=== PATIENT | female | born 1955 | race Caucasian/White ===

== ENCOUNTER → 2020-08-12 | Outpatient (CLI) | payer MEDICARE, SELFPAY ==
[2020-08-12 13:53] VITALS: BMI 22.1
[2020-08-15 03:06] LABS: Chlamydia By Nucleic Acid AMP Negative (Negative)
[2020-08-15 08:41] LABS: Gonococcus By Nucleic Acid AMP Negative (Negative)
[2020-08-16 04:37] LABS: HSV Culture Without Typing Positive (.)
== END | disposition home or self-care (01) ==
PROVIDERS: Referring Provider Nurse Practitioner Women's Health; Visit Provider Nurse Practitioner Women's Health
DX: Z12.4 Encounter for screening for malignant neoplasm of cervix (principal); Z11.3 Encounter for screening for infections with a predominantly sexual mode of transmission
CPT/HCPCS: 87255; 87491; 87591; 87624; 88175; G0145

== ENCOUNTER → 2020-12-03 15:52 | Outpatient (CLI) | payer MEDICARE, SELFPAY ==
[2020-09-02 15:40] VITALS: BMI 21.9
--- NOTE | 2020-12-03 15:58 | BD_ITS ---
STUDY: DUAL ENERGY X-RAY ABSORPTIOMETRY / DXA REASON FOR EXAM: Female, 65 years old. [id number] TECHNIQUE: Bone Mineral Density (BMD) measurements of lumbar spine and bilateral hips were obtained. COMPARISON: None. FINDINGS: Lumbar Spine (L1-L4): g/cm2 (1.216) / T-score (0.1) / Z-score (1.7) Findings are suggestive of normal bone density with a low fracture risk. Left Femur Total: g/cm2 (0.855) / T-score (-1.2) / Z-score (0.1) Left Femoral Neck: g/cm2 (0.772) / T-score (-1.9) / Z-score (-0.4) Right Femur Total: g/cm2 (0.932) / T-score (-0.6) / Z-score (0.7) Right Femoral Neck: g/cm2 (0.855) / T-score (-1.3) / Z-score (0.2) BD/Dexa Bone Density Study IMPRESSION: The patient is considered osteopenic as outlined below according to World Luis Organization (WHO) criteria with a moderate fracture risk. Reference Information: The T-score is the number of standard deviations above or below the standard which is normal for young adults at their peak bone mineral density. The World Health Organization (WHO) interprets the T-scores as follows: Above -1 Normal bone density Between -1 and -2.5 Osteopenia Equal to / or below -2.5 Osteoporosis As a practical clinical guideline, osteopenia may be graded as follows: Mild -1 through -1.5 Moderate -1.6 through -2.0 Severe -2.1 through -2.4 The Z-score is the number of standard deviations above or below age-matched controls. A Z-score of less than -1.5 would be considered abnormal. References: 1. NIH Osteoporosis and Related Bone Diseases www osteo.org 2. International Society for Clinical Densitometry www iscd.org 3. National Osteoporosis Foundation www nof.org Electronically Signed: Sander Arenas MD at 12:29 EDT , Service support ,
== END ==
DX: Z78.0 Asymptomatic menopausal state (principal); M85.80 Other specified disorders of bone density and structure, unspecified site
CPT/HCPCS: 77080

== ENCOUNTER → 2020-12-11 10:40 | Outpatient (CLI) | payer MEDICARE, SELFPAY ==
[2020-09-02 15:40] VITALS: BMI 21.9
[2020-12-11 11:17] LABS: Absolute Lymphocyte Count 1.23 X10^3/uL (0.83-4.51); Basophil# 0.03 X10^3/uL; Basophil% 0.5 % (0-1); Eosinophil# 0.14 X10^3/uL; Eosinophils% 2.4 % (0-5); Hemoglobin 15.2 g/dL (12.0-15.0); Lymphocyte # 1.23 X10^3/ul (0.83-4.51); Mean Corp Hgb Conc 32.3 g/dL (32-36); Mean Corpuscular Hgb 30.6 pg (27.0-32.0); Mean Corpuscular Volume 94.8 fL (81-99); Mean Platelet Vol. 10.9 fl (6.2-12.0); Monocyte# 0.46 X10^3/uL; Monocyte% 7.8 % (0-10); NRBC Flagged by Analyzer 0 % (0-5); Neutrophil % 68.1 % (47-70); Platelet Count 173 K/mm3 (150-450); RBC Distribution Width CV 12.7 % (11.6-14.6); RBC Distribution Width SD 44.2 fl (35.1-43.9); Red Blood Count 4.96 M/mm3 (4.2-5.4); White Blood Count 5.9 K/mm3 (4.4-11.0)
[2020-12-11 11:57] LABS: ALB/GLOB Ratio 1.1 RATIO (0.9-2.4); AST(SGOT) 20 U/L (15-37); Alanine Aminotransfer ALT/SGPT 30 U/L (13-56); Alkaline Phosphatase 70 U/L (45-117); Anion Gap 3 (5-15); BUN 18 mg/dL (7-18); BUN/Creat Ratio 21.1 RATIO (10-20); Chloride 105 mmol/L (98-107); Cholesterol 207 mg/dL (200); Creatinine, Serum 0.85 mg/dL (0.55-1.02); EST Glomerular Filtration Rate 71 mL/min (>60); Est Glom Filt Rate - Afr Amer 85 mL/min (>60); Globulin 3.7 g/dL (2.2-4.2); Glucose 82 mg/dL (74-106); High Density Lipoprotein 70 mg/dL; Potassium 3.8 mmol/L (3.5-5.1); Protein, Total 7.7 g/dL (6.4-8.2); Sodium Level 140 mmol/L (136-145); Thyroid Stim Hormone (TSH) 1.77 uIU/mL (0.358-3.74); Triglycerides 114 mg/dL; Very Low Density Lipoprotein 23 mg/dL (5-40)
[2020-12-12 08:09] LABS: Hepatitis C Ab <0.1 s/co ratio (0.0-0.9)
== END ==
LOC: LAB.FUTURE 12-03 16:30 → LAB 10:41
DX: E78.2 Mixed hyperlipidemia (principal); Z78.0 Asymptomatic menopausal state; Z11.59 Encounter for screening for other viral diseases
CPT/HCPCS: 36415; 80053; 80061; 84443; 85025; 86803; 86804

== ENCOUNTER 2021-02-26 12:27 | Emergency (ER) | payer MEDICARE, SELFPAY ==
[2021-02-02 14:57] VITALS: BMI 21.9
[2021-02-26] VITALS (8 sets, daily range): BP systolic 113–143; BP diastolic 70–87; PULSE 85–96; RESP 13–23; TEMP 36.1–36.2; O2SAT 96–100; BMI 21.8
--- NOTE | 2021-02-26 12:58 | RAD_ITS ---
STUDY: X-RAY CHEST REASON FOR EXAM: Female, 65 years old. Fever TECHNIQUE: Single AP portable view of the chest. COMPARISON: None. FINDINGS: EKG electrodes are seen. The lungs are clear and expanded. There is no demonstrated pleural abnormality. Normal size heart. Normal mediastinum and negro. Normal visualized pulmonary arteries. There is atherosclerotic tortuosity of the aortic arch and descending thoracic aorta. There are degenerative changes of the visualized thoracic spine. Normal visualized ribs, clavicles, and shoulders. There is no demonstrated abnormality of the visualized soft tissue structures of the upper abdomen. RAD/Chest 1 View (Portable) IMPRESSION: No acute abnormality is seen. Electronically Signed: Sander Arenas MD at 14:25 EDT , Service support ,
--- NOTE | 2021-02-26 12:58 | EKG12_ITS ---
Test Reason : SOB Blood Pressure : / mmHG Vent. Rate : 076 BPM Atrial Rate : 076 BPM P-R Int : 144 ms QRS Dur : 066 ms QT Int : 370 ms P-R-T Axes : 052 010 028 degrees QTc Int : 416 ms Normal sinus rhythm Normal ECG Confirmed by MARCUS MENDEZ, ROS ([id number]), editor newspaper LAUREL SIMS ([id number]) on 03/03/2021 1:33:02 PM Referred By: SHAHEEN/TRAMAINE Confirmed By:ROS VELAZQUEZ MD
--- NOTE | 2021-02-26 12:59 | EDS_ITS ---
HPI History of Present Illness Chief Complaint: Shortness of Breath Informant: patient Onset/Context/Timing Onset: Weeks Timing: Intermittent Current Severity: Mild Maximum Severity: Mild Narrative Narrative: 65-year-old female no significant past medical history only surgery was a tonsillectomy. States she was in [place] a week ago. For the last week she has had intermittent fever of 100-1 01. Mild cough. Mild shortness of breath. No chest pain. No vomiting or diarrhea. Mild nausea. No dysuria. No abdominal pain. States she is usually not ill. Saw her primary care physician last week said she had some abnormal labs. Prior similar symptoms: No Recent Illness/Hospitalization: No PFSH PFSH Home Medications ascorbate calcium (vitamin C) 500 mg tablet 500 mg PO DAILY 08/12/20 [History Last Taken Unknown] calcium carbonate 500 mg calcium (1,250 mg) tablet 500 mg PO DAILY 08/12/20 [History Last Taken Unknown] cholecalciferol (vitamin D3) 50 mcg (2,000 unit) capsule 50 mcg PO DAILY 1 10/13/19 [History Last Taken Unknown] cod liver oil 1 cap PO DAILY 08/12/20 [History Last Taken Unknown] multivitamin 1 tab PO DAILY 08/12/20 [History Last Taken Unknown] estradiol See Rx Instructions VAGINAL .COMPLEX #42.5 g 09/02/20 [Rx Last Taken Unknown] Allergy/AdvReac Type Severity Reaction Status Date / Time No Known Allergies Allergy Unverified 02/02/21 14:52 Family History Aunt Breast cancer Surgical History History of tonsillectomy Social History household members: spouse number of children: 9 current occupational status: retired history of recent travel: No Smoking Status: Never smoker alcohol intake: never substance use type: does not use what type of physical activity do you participate in: walking seatbelt use: always do you feel safe at home: Yes additional social history: - [place] ROS ROS ED ROS Narrative Cough and fever. Review of Systems ROS Unobtainable: Denies due to encephalopathy Constitutional Constitutional ED: Reports fever(s) Eyes Eyes: Denies change in vision ENT ENT ED: Denies ear pain or sore throat Cardiovascular Cardiovascular: Denies chest pain or palpitations Respiratory/Chest Respiratory/Chest: Reports cough Gastrointestinal Gastrointestinal: Denies abdominal pain, diarrhea, nausea or vomiting Genitourinary Genitourinary ED: Denies dysuria or hematuria Musculoskeletal Musculoskeletal: Denies myalgias Integumentary Denies abscess or rash Neurologic Neurologic: Denies headache(s) Psychiatric Psychiatric: Denies depression Endocrine Endocrinology: Denies polyuria Allergic/Immunologic Allergic/Immunologic ED: Denies urticaria EXAM Physical Exam Narrative Exam Narrative: Older female no acute distress vital signs stable afebrile. Pulse ox 98% on room air no signs hypoxia. HEENT exam unremarkable. Mostly findings. Lungs clear to auscultation bilaterally. Heart regular rhythm no murmur rate about 90. Abdomen soft nontender normal bowel sounds no peritoneal signs. Patient moving all 4 extremities. No edema. Back nontender. Neurologically she is awake alert with no focal motor deficits. Const Vital Signs: 02/26/21 12:28 02/26/21 12:45 02/26/21 13:30 Temperature 97.2 F L Temperature Source Temporal Pulse Rate 90 89 Respiratory Rate 16 13 Respiratory Effort Short of Breath Blood Pressure 113/82 H Blood Pressure Mean 92 Pulse Ox 98 Oxygen Delivery Method Room Air Venturi Mask Room Air 02/26/21 13:32 02/26/21 14:38 02/26/21 14:39 Temperature 97 F L 96.9 F L Temperature Source Temporal Temporal Pulse Rate 89 Respiratory Rate 16 Respiratory Effort Blood Pressure 127/70 H Blood Pressure Mean 89 Pulse Ox 100 Oxygen Delivery Method 02/26/21 16:18 02/26/21 17:15 Temperature Temperature Source Pulse Rate 85 Respiratory Rate 21 H Respiratory Effort Blood Pressure 126/85 H 143/87 H Blood Pressure Mean 98 105 Pulse Ox 96 Oxygen Delivery Method Room Air Positive well nourished and well developed General Appearance ED: well developed HEENT Reports moist mucous membranes Negative for trauma or tenderness Eyes PERRL and EOMs intact bilaterally Neck no lymphadenopathy, supple and no JVD General: Negative for tenderness Chest Wall inspection of chest normal and palpation of chest normal Resp normal respiratory effort and clear to auscultation bilaterally Effort and Inspection: Negative for pain with movement GI normal to inspection, nondistended, normoactive bowel sounds, non-tender and non-distended Palpation: soft Back/Spine no CVA tenderness General Back: Negative for CVA tenderness Cervical Spine: Negative for cervical spine tenderness Extremity normal to inspection General Extremety ED: Negative for edema or tenderness General Extremity: Negative for edema Neuro oriented x3, CN's II-XII intact bilaterally and no sensory deficits noted Sensorium / Orientation: alert; Negative for orientation impaired, lethargic or stuporous Motor Exam: strength 5/5 throughout; Negative for general weakness Psych mental status grossly normal Skin no rashes or lesions noted and no wounds MDM MDM MDM Narrative Medical decision making narrative: Older female recent fevers with generalized weakness and cough. Will undergo a septic work-up. Treated with IV fluids. Repeat exam patient is doing well at 5:35 PM. Exam unchanged. Clinically looks well. Vital signs are stable. I went over all test results the patient and her . Difficulty with her being discharged home with outpatient follow-up with her primary care physician next week. I explained to me none of any specific cause for her low-grade temperatures or her symptoms of fatigue. Lab Data Attestation: I reviewed the patient's lab results. Lab results narrative: CBC shows a white count 8. Hemoglobin 13.7. 35% neutrophils 2% bands. PT/INR unremarkable. Electrolytes unremarkable gap of 4 creatinine 0.91 mildly elevated ALT and alk phos. UA normal. Chest x-ray portable 1 view unremarkable. Lactic acid normal. Liver enzymes are still slightly elevated but improved from the most recent set done by the [facility]. Labs: Laboratory Results - last 24 hr 02/26/21 02/26/21 02/26/21 13:21 13:30 13:30 WBC 8.6 RBC 4.61 Hgb 13.7 Hct 42.4 MCV 92.0 MCH 29.7 MCHC 32.3 RDW Std Deviation 46.7 H RDW Coeff of Tc 13.8 Plt Count 150 MPV 10.3 Neut % (Auto) Not Reportable Absolute Neuts (auto) 3.2 Absolute Lymphs (auto) 5.16 H Total Counted 100 Neutrophils % (Manual) 35 L Band Neutrophils % 2 Lymphocytes % (Manual) 60 H Monocytes % (Manual) 3 Diff Path Review May foll Reactive Lymphocytes 3+ Platelet Estimate ADEQUATE RBC Morphology NORM C+C PT 13.5 INR 1.1 APTT 39.0 H Sodium Potassium Chloride Carbon Dioxide Anion Gap BUN Creatinine Estim Creat Clear Calc Est GFR (MDRD) Af Amer Est GFR (MDRD) Non-Af BUN/Creatinine Ratio Glucose Lactic Acid Calcium Total Bilirubin AST ALT Alkaline Phosphatase Total Protein Albumin Globulin Albumin/Globulin Ratio Urine Color Yellow Urine Clarity Clear Urine pH 6.5 Ur Specific [place] 1.010 Urine Protein Negative Urine Glucose (UA) Normal Urine Ketones Negative Urine Occult Blood Negative Urine Nitrite Negative Urine Bilirubin Negative Urine Urobilinogen Normal Ur Leukocyte Esterase 25 H Urine RBC 0 SEEN Urine WBC 0 SEEN Ur Squamous Epith Cells 0 SEEN Urine Bacteria 0 SEEN Urine Mucus 0 SEEN 02/26/21 02/26/21 13:30 13:30 WBC RBC Hgb Hct MCV MCH MCHC RDW Std Deviation RDW Coeff of Tc Plt Count MPV Neut % (Auto) Absolute Neuts (auto) Absolute Lymphs (auto) Total Counted Neutrophils % (Manual) Band Neutrophils % Lymphocytes % (Manual) Monocytes % (Manual) Diff Path Review Reactive Lymphocytes Platelet Estimate RBC Morphology PT INR APTT Sodium 137 Potassium 4.0 Chloride 102 Carbon Dioxide 31.0 Anion Gap 4 L BUN 16 Creatinine 0.91 Estim Creat Clear Calc 54.72 Est GFR (MDRD) Af Amer 79 Est GFR (MDRD) Non-Af 65 BUN/Creatinine Ratio 17.5 Glucose 87 Lactic Acid 0.8 Calcium 8.8 Total Bilirubin 0.90 AST 89 H ALT 263 H Alkaline Phosphatase 157 H Total Protein 7.7 Albumin 3.4 Globulin 4.3 H Albumin/Globulin Ratio 0.8 L Urine Color Urine Clarity Urine pH Ur Specific [place] Urine Protein Urine Glucose (UA) Urine Ketones Urine Occult Blood Urine Nitrite Urine Bilirubin Urine Urobilinogen Ur Leukocyte Esterase Urine RBC Urine WBC Ur Squamous Epith Cells Urine Bacteria Urine Mucus Radiography Chest X-Ray - ED: 1 View, Read by ED Physician, Normal, Heart, Lungs, Mediastinum, Bony Structures and No Acute Disease Diagnostic Testing: Radiology Impression Chest X-Ray 02/26/21 12:58 IMPRESSION: No acute abnormality is seen. Electronically Signed: Sander Arenas MD at 14:25 EDT , Service support , No acute disease. Interpreted by myself. Rhythm Strip Rhythm Strip: Sinus Rhythm Rate: 76 Ectopy: None EKG Initial EKG: Attestation: I personally reviewed and interpreted this EKG as follows: Interpretation: Sinus Rhythm and No Acute Injury Pattern Comments: Normal sinus rhythm rate of 76 no acute signs of [place] nor ischemia. No dysrhythmia. Prior EKG tracings: not available for review Discharge Plan Triage Chief Complaint: Shortness of Breath ED Provider: Gary Merida Dx/Rx/DC Orders Clinical Impression: Fever, Fatigue Instructions: ED FUO Adult Prescriptions: No Action multivitamin Tablet 1 tab PO DAILY RF: 0 ascorbate calcium (vitamin C) 500 mg tablet 500 mg PO DAILY RF: 0 cholecalciferol (vitamin D3) 50 mcg (2,000 unit) capsule 50 mcg PO DAILY RF: 0 calcium carbonate [Calcium 500] 500 mg calcium (1,250 mg) tablet 500 mg PO DAILY RF: 0 cod liver oil Capsule 1 cap PO DAILY RF: 0 estradiol 0.01 % (0.1 mg/gram) cream See Rx Instructions VAGINAL .COMPLEX Qty: 42.5 RF: 2 Referrals: Tapan Garza [Other] - 1 Week Activity Restrictions/Additional Instructions: Follow-up with primary care physician. Plenty of fluids and rest. Your test today looked real good. Your liver enzymes are improving from the prior test at the [facility] good. No obvious signs of any infection today. Normal white count. Urine and chest x-ray were both negative. Disposition Disposition: Home, Self Care
--- NOTE | 2021-02-26 13:01 | NURSING ---
NO OLD EKGS
[2021-02-26 13:26] LABS: Bacteria 0 SEEN /hpf (None Seen); Mucous, Urine 0 SEEN /hpf (<or=2+); Red Blood Cells-Urine 0 SEEN /hpf (0-5); Squamous Epithelial Cells - UA 0 SEEN /hpf (5-10); White Blood Cells 0 SEEN /hpf (0-5)
[2021-02-26] MEDS: 0.9% Normal Saline 1,000 ML 999 ML IV (13:27)
[2021-02-26 13:44] LABS: Hematocrit 42.4 % (37-47); Hemoglobin 13.7 g/dL (12.0-15.0); Mean Corp Hgb Conc 32.3 g/dL (32-36); Mean Corpuscular Hgb 29.7 pg (27.0-32.0); Mean Platelet Vol. 10.3 fl (6.2-12.0); POSITIVE DIFFERENTIAL YES; POSITIVE MORPHOLOGY YES; Platelet Count 150 K/mm3 (150-450); RBC Distribution Width CV 13.8 % (11.6-14.6); RBC Distribution Width SD 46.7 fl (35.1-43.9); Red Blood Count 4.61 M/mm3 (4.2-5.4); White Blood Count 8.6 K/mm3 (4.4-11.0)
[2021-02-26 13:48] LABS: Color, Urine Yellow (Yellow); Glucose, Dipstick Normal (Normal); Ketone-Dipstick Negative (Negative); Leukocyte Esterase-Dipstick 25 /ul (Negative); Nitrite-Dipstick Negative (Negative); Occult Blood-Urine Negative /ul (Negative); Protein-Dipstick Negative (Negative); Urine Bilirubin Dipstick Negative (Negative); Urine Clarity Clear (Clear); Urine Urobilinogen Normal (Normal); Urine pH 6.5 (5.0 - 8.0)
[2021-02-26 13:51] LABS: International Normalized Ratio 1.1; Prothrombin Time (Protime)PT. 13.5 SECONDS (11.7-14.9)
[2021-02-26 14:00] LABS: ALB/GLOB Ratio 0.8 RATIO (0.9-2.4); AST(SGOT) 89 U/L (15-37); Alanine Aminotransfer ALT/SGPT 263 U/L (13-56); Albumin, Serum 3.4 g/dL (3.2-5.0); Alkaline Phosphatase 157 U/L (45-117); Anion Gap 4 (5-15); BUN 16 mg/dL (7-18); BUN/Creat Ratio 17.5 RATIO (10-20); Calcium,Total 8.8 mg/dL (8.5-10.1); Chloride 102 mmol/L (98-107); Creatinine, Serum 0.91 mg/dL (0.55-1.02); EST Glomerular Filtration Rate 65 mL/min (>60); Est Glom Filt Rate - Afr Amer 79 mL/min (>60); Estimated Creatinine Clearance 54.72 ml/min; Globulin 4.3 g/dL (2.2-4.2); Glucose 87 mg/dL (74-106); Protein, Total 7.7 g/dL (6.4-8.2); Sodium Level 137 mmol/L (136-145)
[2021-02-26 14:11] LABS: Lactic Acid 0.8 mmol/L (0.4-1.9)
[2021-02-26 14:21] LABS: Differential Indicated MANUAL DIFF
[2021-02-26 14:33] LABS: Lymphocyte 60 % (19-41); Monocyte 3 % (0-10); Neutrophil-Band 2 % (0-5); Neutrophil-Segmented 35 % (47-70); Total Cells Counted 100 (MANUAL DIFF)
[2021-02-26 14:34] LABS: Platelet Estimate ADEQUATE (ADEQ); Red Cell Morphology NORM C+C NORMAL (NORM C&C)
[2021-02-26 14:35] LABS: Reactive Lymphocyte 3+
[2021-02-26 14:37] LABS: Absolute Lymphocyte Count 5.16 X10^3/uL (0.83-4.51); Absolute Neutrophil Count 3.2 X10^3/uL (2.0-7.7)
[2021-03-02 11:56] LABS: Pathologist Review Reviewed
== END 2021-02-26 17:59 | disposition home or self-care (01) ==
PROVIDERS: Emergency Provider Emergency Medicine
DX: R50.9 Fever, unspecified (principal); R53.83 Other fatigue; R05 Cough; R06.02 Shortness of breath; R11.0 Nausea; Z20.822 Contact with and (suspected) exposure to COVID-19; Z79.899 Other long term (current) drug therapy
CPT/HCPCS: 36415; 71045; 80053; 81001; 83605; 85025; 85610; 85730; 87040; 87086; 87088; 87426; 93005; 96360; 96361; 99284; J7030; A4216